=== PATIENT | female | born 1980 | race Caucasian/White ===

== ENCOUNTER 2017-01-23 16:37 | Emergency (ER) ==
[2017-01-23 16:47] VITALS: BP 161/108; TEMP 97.8; BMI 34.3
[2017-01-23 17:26] LABS: URINE PREGNANCY INTERNAL QC INTERNAL QC VALID
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
== END 2017-01-23 18:11 | disposition home or self-care (01) ==
LOC: ED 16:37
DX: M54.5 Low back pain (principal); V49.40XA Driver injured in collision with unspecified motor vehicles in traffic accident, initial encounter; F17.210 Nicotine dependence, cigarettes, uncomplicated
CPT/HCPCS: 81025; 99283

== ENCOUNTER 2017-06-06 09:58 | Inpatient (IN) ==
[2017-06-06] MEDS ORDERED: NORCO 7.5-325 PO PRN (10:39)
[2017-06-06 10:41] VITALS: BMI 33.6
[2017-06-06] MEDS ORDERED: TYLENOL PO PRN (10:41)
[2017-06-06] MEDS: FLAGYL 500 MG/100 ML 500 MG in PREMIX 100 ML NS 1 BAG IV SCH ×2 (11:45→20:47)
--- NOTE | 2017-06-06 13:12 | CT ---
EXAM: Maxillofacial CT with contrast TECHNIQUE: Helical axial maxillofacial CT was performed with contrast with coronal and sagittal isela nstructions. COMPARISON: None HISTORY: Right facial swelling FINDINGS: There is acute inflammation seen over the right aspect of the mandible involving the platy sma muscle and subcutaneous tissues. There is a small fluid collection with an air-fluid level seen a djacent to the body of the mandible on the right measuring about a centimeter in diameter. There are periapical lucencies seen involving the first molar (tooth 30) which is adjacent to the small absces s. There are prominent enhancing reactive l level Ia and Ib lymph nodes. There are more normal appea ring symmetric fairly prominent level IIa lymph nodes as well. The airway is widely patent. The vascular structures demonstrate normal enhancement. The visualize d portion of the mastoid air cells are patent. The visualized intracranial contents are normal. Th e orbits are symmetric and unremarkable. The visualized paranasal sinuses show no air-fluid levels. The temporomandibular joints are symmetric. IMPRESSION: 1. Small dental abscess as described involving the right mandible at the first molar (tooth 30) whic h demonstrates periapical lucencies. 2. Reactive adenopathy as noted.
[2017-06-06] MEDS: ROCEPHIN 1 GM in SODIUM CHLORIDE 50 ML IV SCH (14:57)
[2017-06-06] MEDS: TORADOL IVP SCH ×2 (15:00→20:47)
[2017-06-06] MEDS: ZANTAC PO SCH (17:03)
[2017-06-06] MEDS: NORCO 7.5-325 PO PRN ×2 (17:06→22:14)
[2017-06-07] MEDS: TORADOL IVP SCH ×3 (02:06→14:35)
[2017-06-07] MEDS: FLAGYL 500 MG/100 ML 500 MG in PREMIX 100 ML NS 1 BAG IV SCH ×2 (04:34→14:35)
[2017-06-07] MEDS: ZANTAC PO SCH (06:08)
[2017-06-07] MEDS: ROCEPHIN 1 GM in SODIUM CHLORIDE 50 ML IV SCH (08:31)
[2017-06-07] MEDS: NORCO 7.5-325 PO PRN (08:45)
[2017-06-07 09:47] VITALS: BP 115/68; TEMP 97.6
--- NOTE | 2017-06-16 09:33 | DS ---
DATE OF SERVICE: 06/07/17 FINAL DIAGNOSIS: 1. Right facial swelling with right lower molar tooth abscess 2. History of GERD 3. Tubal ligation 4. Tonsillectomy 5. Cholecystectomy DISCHARGE INSTRUCTIONS: Discharge the patient home. Followup with the dentist today. MEDICATIONS AT DISCHARGE: Zantac NEW PRESCRIPTIONS: Keflex 500mg PO twice a day for 7 days Clindamycin three times a day for 5 days. DIET INSTRUCTIONS: Soft diet ACTIVITY: As much as tolerated SMOKING: Current everyday smoker. DISEASE SPECIFIC EDUCATION: Dental abscess Endocarditis been discussed and verbalized understanding. HOSPITAL COURSE: Keira Bosch was seen in the [facility] as a new patient. The patient came with facial swelling on the right side with lower jaw been swollen almost to gold size. Admitted to the hospital with dental abscess. CT maxillary facially bones did show the abscess. Started on the IV Rocephin and Flagyl. Morphine was given for the pain. Today when we called the patient's dentist they were agreeable to see the patient. At that time the patient being discharged home. Antibiotics Keflex and Flagyl were given. Advised to continue the medication and explained about the risk of having infection to the heart and to the brain. TIME SPENT: MORE THAN 65 MINUTES MTDD
== END 2017-06-07 11:50 | disposition home or self-care (01) | DRG 159 ==
LOC: MEDSURG A 09:58
PROVIDERS: ADMIT Emergency Medicine; ATTEND Emergency Medicine
DX: K04.7 Periapical abscess without sinus (principal); R22.0 Localized swelling, mass and lump, head; K21.9 Gastro-esophageal reflux disease without esophagitis; F17.200 Nicotine dependence, unspecified, uncomplicated; Z79.899 Other long term (current) drug therapy
CPT/HCPCS: 36415; 80053; 84703; 85025

== ENCOUNTER 2017-08-28 15:06 | Outpatient (CLI) ==
--- NOTE | 2017-08-29 09:50 | MRI ---
EXAM: Lumbar spine MRI with and without contrast. HISTORY: Low back pain. COMPARISON: Lumbar spine CT scan 01/23/2017 and lumbar spine MRI 02/12/2016. TECHNIQUE: Multiplanar, multisequence MR images were acquired lumbar spine before and after administ ration of intravenous contrast. FINDINGS: Conus medullaris ends at L1 and has normal signal intensity. There is a filum terminale f ibrolipoma from L1-2 to L4-5 and intermittent visualization of the filum terminale to the bottom of t hecal sac at S1. Transitional spinal anatomy is present at the lumbosacral junction. There are five classic non-rib bearing lumbar vertebra and the subsequent vertebra is considered L6 with right lumb arization and partial left lumbarization with a small pseudoarticulation between the left L6 transver se process and the sacrum. There is minor thoracolumbar levoscoliosis centered at L3-4 and minor lumb ar ventral spondylosis. There is disc desiccation at L1-2 and disc desiccation with mild disc space narrowing at L5-6 and L6-S1. The partially visualized liver and kidneys are unremarkable. There are no paravertebral masses. T12-L1: The intervertebral disc is normal. L1-2: The intervertebral disc is normal. A few tiny degenerative cysts are present along the left f acet joint and a small probable synovial cyst is present posterior to the right facet joint. L2-3: The intervertebral disc is normal. A small benign intraosseous hemangioma is present at L2. L3-4: The intervertebral disc is normal. There is minor bilateral facet arthropathy without foramin al stenosis. L4-5: There is a minor disc bulge with marginal osteophytes that minimally narrows the inferior neur al foramina bilaterally and mild bilateral hypertrophic facet arthropathy and ligamentum flavum hyper trophy. There is no central canal stenosis or significant foraminal stenosis. L5-6: There is mild disc bulge and small central disc protrusion and enhancing annular tear that min imally effaces the ventral thecal sac. Mild to moderate right and mild left hypertrophic facet arthr opathy and ligamentum flavum hypertrophy is present. There is mild right and minor left neural femi inal stenosis. L6-S1: There is a minor posterior disc bulge with marginal osteophytes that contacts the anteromedia l S1 nerves bilaterally and narrows the anterior inferior left neural foramen. IMPRESSION: 1. No change mild lumbar degenerative spondylosis. 2. Stable small central disc protrusion and annular fissure L5-6. 3. No central canal stenosis, pars interarticularis defects or significant foraminal stenosis.
== END 2017-08-28 15:07 | disposition home or self-care (01) ==
LOC: RAD 15:06
PROVIDERS: ATTEND Physician Assistant
DX: M54.5 Low back pain (principal)

== ENCOUNTER 2018-03-08 11:00 | Outpatient (RCR) ==
--- NOTE | 2018-03-05 11:47 | RS.OPPTEV2 ---
Date of Note: 03/05/18 Visit #: 1 Date of Evaluation: 03/05/18 Payer Source: Medicaid ([place]) Treatment Diagnosis: Low Back Pain History of Condition/Mechanism of Injury:: Patient reports history of low back pain since 2013. States pain has progressively gotten worse. She has been to Pain Management for injections and cauterization of nerves in the low back. States all treatment was temporary. Prior Level of Function.....Patient was independent with: ADL's, Self Care, Caregiving, Ambulation/Mobility, Community Integration/Access Level of Function: States she is currently not working. Functional Limitations: Sleep, Self Care, ADL's, Reaching, Pushing, Pulling, Lifting, Carrying, Sitting, Standing, Bending, Squatting, Ambulation, Community Access/Integration Current Subjective/complaints:: Patient reports constant pain in bilateral LE' s. States pain goes down to the back of both calfs. She also has tingling and numbness, but states she had that even before her back pain. Also reports weakness in both legs. She is not taking pain medication. States she has been trying to go without the medication. She has mobic if she needs it. She has used heat at night to help her go to sleep. She does not want to go back to Pain Management. Reports sleep is interrupted by pain, but also has insomnia. Medical History Medical History: Unremarkable Surgical History: Cholecystectomy Smoking Status: Current every day smoker Diagnostic Testing/Imaging:: MRI of lumbar spine on 08/28/17: Impression: Mild lumbar degenerative spondylosis. Stable small central disc protrusion and annular fissure L5-6. No central canal stenosis, pars interarticularis defects or significant foraminal stenosis. Hx Home Medications: atorvastatin,hydroxyzine pamoate (vistaril),lisinopril, ranitidine Patient's Goals: Her goal is to get some relief of pain. Pain Assessment - Pain Description Pain Location: back and legs Pain Description: Chronic Current Pain Intensity: 6/10 Worst Pain Intensity: 9/10 Functional Outcome Measure Oswestry LBP: 72 - G Codes & Severity Modifier G Codes & Modifier: Na Source of G Code score: na Observation - Observation Posture: Forward Head, Rounded Shoulders, Decreased Lumbar Lordosis Gait - Gait Pattern Gait Comments: Patient ambulates without obvious gait deviations. - ROM Sidebending to Left: Reach to Lateral Joint Line Sidebending to Right: Reach to Lateral Joint Line Lumbar Spine ROM Limitations: Pain Comments: Lumbar extension ~15 degrees with reports of increased pain. Lumbar flexion deferred by patient. Sidebending reportedly not as bad, but still notices discomfort. Bilateral LE AROM is WFL's. Patient reports pain with hip flexion beyond 85-90 degrees flexion. Lower lumbar rotation in supine causes pain in both directions. - Strength Trunk Rotation: 4- Good- Comments: Bilateral LE strength generally 4-/5. Demonstrates difficulty holding against resistance. - Special Tests SLR Test: Positive Left, Positive Right Seated Dural Stretch Test: Positive Left, Positive Right Palpation Comments:: Demonstrates minimal muscle guarding along the lumbar paraspinals. Reports tenderness in this area and SI region. Sensation - Sensation Comments: Sensation to light touch intact, with reports of tingling and numbness to her feet equally in bilateral LE's. Additional Comments: Additional Comments: Leg lengths are equal in supine. Interventions - Exercise/Activities/Manual Therapy Exercises/Activities: None today. Manual Therapy: Na HOME EXERCISE PROGRAM: None given today. - Charges Timed Code Treatment Minutes: 0 mins Total Treatment Time: 42 mins Procedures billed for this date of service:: EVAL Medium EVALUATION COMPLEXITY LEVEL EVALUATION COMPLEXITY LEVEL: HISTORY: Medium (Chronic LBP since 2014), EXAM OF BODY SYSTEMS: Medium, CLINICAL PRESENTATION: Medium, CLINICAL DECISION MAKING: Medium Assessment Assessment: Patient presents to therapy with a diagnosis of Low back pain. She reports constant low back and LE pain. Also reports constant tingling/numbness in LE's. She scores herself 72% impaired on the Oswestry LBP scale. Demonstrates pain with most movement of the lumbar spine and LE's, making it difficult to perform valid Special tests to determine source of pain. She may benefit from modalities to reduce muscle tone and pain, and progress to exercises to improve her mobility and activity level. Patient Education: Education of diagnosis, Body/Joint mechanics, Activity Modification, Education of Plan of Care Rehab Potential: Fair Short Term Goals Goal #1: Pt able to perform 10 mins of exercises in department. Goal to be met by: 03/12/18 Goal #2: Pt independent and compliant with HEP. Goal to be met by: 03/19/18 Goal #3: Pt to report radicular symptoms less than constant. 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 Goal to be met by: 04/09/18 Goal #2: Score on Oswestry LBP scale improved to 50. Goal to be met by: 04/09/18 Goal #3: Pt able to sleep with minimal interruption from back or LE pain. Goal to be met by: 04/09/18 Goal #4: Pt able to perform selfcare and light ADL's with minimal back pain. Goal to be met by: 04/09/18 Plan - Treatment to be Provided Procedures: Therapeutic Exercises, Therapeutic Activity, Neuromuscular Rehab, Manual Therapy, Patient Education Modalities: Electrical Stimulation, Ultrasound/Phonophoresis, Cryotherapy, Hot Packs, Mechanical Traction - Treatment Plan Frequency: 3 X week Duration: 4 weeks ORDER # VISITS AND/OR THROUGH DATE: 04/09/18 - Treatment Code (1) Low back pain Code(s): M54.5 - LOW BACK PAIN Qualifiers: Chronicity: chronic Back pain laterality: bilateral Sciatica presence: unspecified whether sciatica present Qualified Code(s): M54.5 - Low back pain ; G89.29 - Other chronic pain
--- NOTE | 2018-03-08 13:17 | RS.OPPTDN ---
Subjective Date of Note: 03/08/18 Visit #: 2 Date of Evaluation: 03/05/18 Payer Source: Medicaid ([place]) Treatment Diagnosis: Low Back Pain Current Subjective/complaints:: Patient says that she always has constant back pain. Reports initially pain was more R sided, then moved to the L presently. She says pain, tingling continue to go down both legs to calves. Reports difficulty sleeping, although she just purchased a better quality bed and still has not changed her pain. She is hopeful PT will work so that she does not have to think about surgery. Pain Assessment - Pain Description Pain Location: 5-6/10 lumbar paraspinals down both legs posteriorally - Treatment Modality: Electrical Stim Unattended Parameters/Method Applied: IFC @ 14 ma x 20 mins to the lumbar paraspinals and superior glut region Patient Position: Right Sidelying - Heat/Cryotherapy Treatment: Hot Pack (concurrent with estim) Interventions - Exercise/Activities/Manual Therapy Exercises/Activities: Began gentle low back stretching: SKTC, HS, Piriformis, and lower trunk rotation bilaterally. Patient demo difficulty mert stretching to both sides, but more so to the L today with each one, particularly HS. Patient was educated on these exercises and their benefits. Patient was instructed to perform SKTC at home this weekend. Total minutes of Exercise: 13 Manual Therapy: Na HOME EXERCISE PROGRAM: None given today. - Charges Timed Code Treatment Minutes: 13 Total Treatment Time: 37 Procedures billed for this date of service:: hp, estim (un), ex Assessment: Patient presents with constant LBP which also extends to the bilateral LE to calves, more so to the L today. She had increased soreness to the low back during all stretches. Patient Education: Education of diagnosis, Body/Joint mechanics, Home Exercise Program, Education of Plan of Care Short Term Goals Goal #1: Pt able to perform 10 mins of exercises in department. Goal to be met by: 03/12/18 Goal #2: Pt independent and compliant with HEP. Goal to be met by: 03/19/18 Goal #3: Pt to report radicular symptoms less than constant. Goal to be met by: 03/19/18 Senior Care Goals Goal #1: Pt knows HEP and to continue ex's to maintain funcitional level at D/C. Goal to be met by: 10/29/18 Goal #2: Score on Oswestry LBP scale improved to 50. Goal to be met by: 04/09/18 Goal #3: Pt able to sleep with minimal interruption from back or LE pain. Goal to be met by: 04/09/18 Goal #4: Pt able to perform selfcare and light ADL's with minimal back pain. Goal to be met by: 04/09/18 Plan PLAN OF CARE EXPIRES ON:: 04/09/18 ORDER # VISITS AND/OR THROUGH DATE: 04/09/18 PLAN: Patient to continue trying estim and gentle therex. May modify to u/s if no symptom change.
== END 2018-03-11 23:59 ==
PROVIDERS: ATTEND Physician Assistant
DX: M54.5 Low back pain (principal)

== ENCOUNTER 2018-03-26 13:00 | Outpatient (RCR) ==
--- NOTE | 2018-03-13 14:11 | RS.OPPTDN ---
Subjective Date of Note: 03/13/18 Visit #: 3 Date of Evaluation: 03/05/18 Payer Source: Medicaid ([place]) Treatment Diagnosis: Low Back Pain Current Subjective/complaints:: Patient says she has felt good since her last session. She admits not having a lot of activity other than staying around her home. She says the pain continues to be at the low back and L buttock/hip. - Treatment Modality: Electrical Stim Unattended Parameters/Method Applied: IFC to lumbar and bilateral superior glut @ 16-18 ma x 20 mins Patient Position: Right Sidelying - Heat/Cryotherapy Treatment: Hot Pack Interventions - Exercise/Activities/Manual Therapy Exercises/Activities: Began gentle low back stretching: SKTC, HS, Piriformis, and lower trunk rotation bilaterally. Patient appears to mert stretches much better than previous session. Began pillow squeezes and isometric hip abd x 10 reps. Pt education on diagnosis, proper body mechanics, and HEP. Added pillow squeezes for home. Total minutes of Exercise: 17 Manual Therapy: Na HOME EXERCISE PROGRAM: None given today. - Charges Timed Code Treatment Minutes: 17 Total Treatment Time: 37 Procedures billed for this date of service:: hp, estim (un), ex Assessment: Patient presents with reduced back pain today, however, she had a pop in her R LB while sneezing during estim. She is able to perform all therex with less difficulty than previous session. She should benefit from further modalities and therex. Patient Education: Body/Joint mechanics, Home Exercise Program Patient demonstrates compliance with HEP?: Yes Short Term Goals Goal #1: Pt able to perform 10 mins of exercises in department. Goal to be met by: 03/12/18 Progress towards Goal:: Progressing Goal #2: Pt independent and compliant with HEP. Goal to be met by: 03/19/18 Progress towards Goal:: Progressing Goal #3: Pt to report radicular symptoms less than constant. 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 Goal to be met by: 04/09/18 Goal #2: Score on Oswestry LBP scale improved to 50. Goal to be met by: 04/09/18 Goal #3: Pt able to sleep with minimal interruption from back or LE pain. Goal to be met by: 04/09/18 Goal #4: Pt able to perform selfcare and light ADL's with minimal back pain. Goal to be met by: 04/09/18 Plan PLAN OF CARE EXPIRES ON:: 04/09/18 ORDER # VISITS AND/OR THROUGH DATE: 04/09/18 PLAN: Patient to continue BIW
--- NOTE | 2018-03-21 12:01 | RS.OPPTDN ---
Subjective Date of Note: 03/21/18 Visit #: 5 Date of Evaluation: 03/05/18 Payer Source: Medicaid ([place]) Treatment Diagnosis: Low Back Pain Current Subjective/complaints:: Patient says that her pain is still flared since she fell last week. She rates 6/10 only in her back and is equal both sides. States she does not have a scheduled appt to follow up with the MD. Pain Assessment - Pain Description Pain Location: 11/19 - Treatment Modality: Electrical Stim Unattended Parameters/Method Applied: IFC @ 12 ma x 20 mins to the lumbar and SI joints Patient Position: Right Sidelying - Heat/Cryotherapy Treatment: Hot Pack Interventions - Exercise/Activities/Manual Therapy Exercises/Activities: Continued with gentle low back stretching: SKTC, HS, Piriformis, and lower trunk rotation bilaterally. Patient has trouble mert stretches and pillow squeezes due to pain level. Discontinued further therex as a result. Total minutes of Exercise: 13 Manual Therapy: Na HOME EXERCISE PROGRAM: None given today. - Charges Timed Code Treatment Minutes: 13 Total Treatment Time: 33 Procedures billed for this date of service:: hp, ex, estim (un) Assessment: Patient maintains mod to severe pain level at the lumbar region, but with no radicular symptoms. She has difficulty mert stretches and therex today related to pain. She has one session remaining. She is encouraged to contact herMD if pain worsens and schedule follow up appt. Patient Education: Body/Joint mechanics, Education of Plan of Care Short Term Goals Goal #1: Pt able to perform 10 mins of exercises in department. Goal to be met by: 03/12/18 Progress towards Goal:: Progressing Goal #2: Pt independent and compliant with HEP. Goal to be met by: 03/19/18 Progress towards Goal:: Progressing Goal #3: Pt to report radicular symptoms less than constant. 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 Goal to be met by: 04/09/18 Goal #2: Score on Oswestry LBP scale improved to 50. Goal to be met by: 04/09/18 Goal #3: Pt able to sleep with minimal interruption from back or LE pain. Goal to be met by: 04/09/18 Goal #4: Pt able to perform selfcare and light ADL's with minimal back pain. Goal to be met by: 04/09/18 Plan PLAN OF CARE EXPIRES ON:: 04/09/18 ORDER # VISITS AND/OR THROUGH DATE: 04/09/18 PLAN: Continue 1 more session
--- NOTE | 2018-03-27 09:27 | RS.OPPTDN ---
Subjective Date of Note: 03/26/18 Visit #: 6 Number of visits approved by Insurance: 6-8 04/09/18: [place] Date of Evaluation: 03/05/18 Payer Source: Medicaid ([place]) Treatment Diagnosis: Low Back Pain Current Subjective/complaints:: Patient says her back is hurting more today. She feels it is weather related and also states she has returned to work and has to stand for prolonged period that elevates her pain. She says she was so stiff following her shift that she went to bed. Patient reports that she has contemplated breast reduction due to the strain it causes on her mid back, neck , and shoulders, but she is fearful of the risks. - Treatment Modality: Electrical Stim Unattended Parameters/Method Applied: IFC 4 large pads @ 16ma x 20 mins to lumbar paraspinals Patient Position: Left Sidelying - Heat/Cryotherapy Treatment: Hot Pack Interventions - Exercise/Activities/Manual Therapy Exercises/Activities: Continued with gentle low back stretching: SKTC, HS, Piriformis, and lower trunk rotation bilaterally. Patient performs pillow squeezes 2x10, isometric hip flexion and abd x 10. Improved mert of therex today. Discussed relationship of back/neck pain and inquiry of breast reduction procedure. Total minutes of Exercise: 17 Manual Therapy: Na HOME EXERCISE PROGRAM: None given today. - Charges Timed Code Treatment Minutes: 17 Total Treatment Time: 37 Procedures billed for this date of service:: hp, estim (un), ex Assessment: Patient had elevated pain from returning to work and standing througout her shift. She does demo improved flexibiity today however and mert stability exercises better. Slight improvement with Oswestry LBP Scale from 72 % impairment to 68%. Patient Education: Education of diagnosis, Body/Joint mechanics, Home Exercise Program, Education of Plan of Care Patient demonstrates compliance with HEP?: Yes Short Term Goals Goal #1: Pt able to perform 10 mins of exercises in department. Goal to be met by: 03/12/18 Progress towards Goal:: Met Goal #2: Pt independent and compliant with HEP. Goal to be met by: 03/19/18 Progress towards Goal:: Met Goal #3: Pt to report radicular symptoms less than constant. 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 Goal to be met by: 04/09/18 Progress towards goal: Progressing Goal #2: Score on Oswestry LBP scale improved to 50. Goal to be met by: 04/09/18 Progress towards goal: Progressing Goal #3: Pt able to sleep with minimal interruption from back or LE pain. Goal to be met by: 04/09/18 Progress towards goal: Progressing Goal #4: Pt able to perform selfcare and light ADL's with minimal back pain. 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 Although, she has returned to work and has had elevated pain as a result. She is aware of her HEP and importance to continue. She was also encouraged to speak with her MD and/or our staff about breast reduction as staff members have personal experience regarding this and pain relief.
--- NOTE | 2018-04-09 11:30 | RS.OPPTDN ---
Subjective Date of Note: 03/15/18 Visit #: 4 Number of visits approved by Insurance: No approval through [facility]. Reasesss at 6th visit for further need Date of Evaluation: 03/05/18 Payer Source: Medicaid ([place]) Treatment Diagnosis: Low Back Pain Current Subjective/complaints:: Patient says her back pain seems to be lessening , but does increase intermittently for no reason. She has been performing HEP and trying to be more aware of posture. - Treatment Modality: Electrical Stim Unattended Parameters/Method Applied: hivolt 4 large pads uncrossed at the mid to lower lumbar paraspinals @ 155-165 pk volts x 20 mins Patient Position: Right Sidelying - Heat/Cryotherapy Treatment: Hot Pack (with estim) Interventions - Exercise/Activities/Manual Therapy Exercises/Activities: Continued with low back stretching: SKTC, HS, Piriformis , and lower trunk rotation bilaterally. She remains limited in flexibility due to muscle guarding and pain. Patient appears to mert stretches much better than previous session. Continued with pillow squeezes and isometric hip abd/flexion x 10 reps. QS bilaterally x 10. Began red tband for scap retraction to assist with improving posture, which will carry over to reduce her back pain. Pt continues ongoing education on diagnosis, proper body mechanics, and HEP. Added red tband for home for resisted hooklying hip abd. Total minutes of Exercise: 18 Manual Therapy: Na HOME EXERCISE PROGRAM: None given today. - Charges Timed Code Treatment Minutes: 18 Total Treatment Time: 38 Procedures billed for this date of service:: hp, estim (un), ex Assessment: Patient continues to require assisted stretching as she has increased muscle guarding today and limited more by pain intermittently. She demo improvement from eval overall with mert to progressive stretching and strength bilateral LEs. She is actively trying to perform HEP consistently and using postural techniques with holding granddaughter. Patient Education: Education of diagnosis, Body/Joint mechanics, Education of Plan of Care Patient demonstrates compliance with HEP?: Yes Short Term Goals Goal #1: Pt able to perform 10 mins of exercises in department. Goal to be met by: 03/12/18 Progress towards Goal:: Met Comments:: She is able to mert 10 mins with stretching and general stability ex today Goal #2: Pt independent and compliant with HEP. Goal to be met by: 03/19/18 Progress towards Goal:: Progressing Goal #3: Pt to report radicular symptoms less than constant. Goal to be met by: 03/19/18 Progress towards Goal:: Progressing (intermittent and ranges with intensity) [facility] Goals Goal #1: Pt knows HEP and to continue ex's to maintain funcitional level at D/C. Goal to be met by: 04/09/18 Goal #2: Score on Oswestry LBP scale improved to 50. Goal to be met by: 04/09/18 Goal #3: Pt able to sleep with minimal interruption from back or LE pain. Goal to be met by: 04/09/18 Goal #4: Pt able to perform selfcare and light ADL's with minimal back pain. Goal to be met by: 04/09/18 Plan Dates of [facility] Goals: 04/09/18 Expiration date of current Insurance Approval:: 04/09/18 PLAN: Patient to continue for assisted stretching and progression of stability exercises and scap strengthening to assist with posture.
--- NOTE | 2018-04-09 11:35 | RS.QUICKDC ---
Discharge from PT Date of Discharge: 04/09/18 Number of Visits: 6 Reason for Discharge: Patient had attended for estim and moist heat to reduce back pain and muscle guarding as well as progressing with flexibility assisted stretching to also assist with improving lumbar ROM and pain. She received HEP including postural techniques/strengthening using tbands and trunk stability/LE strengthening to assist with support for lumbar spine and ease pain. She had improvement intermittently with back pain, but remained with mild limitation in flexibility. She is able to now maintain this however at home through consistent stretching and perform HEP often to prevent pain from worsening and also use better body mechanics while at home/work. Oswestry LBP Scale score did improve slightly from 72% to 68% impairment. For specific treatment, see daily notes.
== END 2018-04-11 23:59 ==
PROVIDERS: ATTEND Physician Assistant
DX: M54.5 Low back pain (principal); G89.29 Other chronic pain

== ENCOUNTER 2018-04-30 10:32 | Outpatient (CLI) ==
--- NOTE | 2018-04-30 11:35 | CT ---
EXAM: CT of the head without contrast History: Headache. Technique: Multiplanar CT images through the head were obtained without the administration of IV con trast Findings: The visualized paranasal sinuses and mastoid air cells are clear in general. No acute jeanne varial abnormalities. Intracranially the ventricular and cisternal spaces are normal in size, shape and configuration for a patient of this age. No dominant mass or midline shift. No hydrocephalous. No acute intracranial hemorrhage or abnormal extraaxial fluid collections. Impression: No acute intracranial process
== END 2018-04-30 10:33 | disposition home or self-care (01) ==
LOC: RAD 10:32
PROVIDERS: ATTEND Physician Assistant
DX: R51 Headache (principal)